=== PATIENT | female | born 1945 | race Caucasian/White ===

== ENCOUNTER 2017-02-03 17:40 | Emergency (ER) | payer MEDICARE | END 2017-02-03 19:55 | disposition home or self-care (01) | LOC: D.ER 17:40 | DX: Z91.81 History of falling (principal) ==

== ENCOUNTER 2018-02-05 21:33 | Inpatient (IN) | payer MEDICARE, MEDICAID ==
[~2018-02-05] VITALS: Ht 157.5 cm; Wt 78.2 kg
--- NOTE | ~2018-02-05 | PN ---
PATIENT:ANTHONY MANSFIELD MEDICAL RECORD: [id number] LOCATION:JollyJETTRebecca AzevedoMadelaine ADMISSION DATE: 02/05/18 PROGRESS NOTE DATE OF SERVICE: 02/20/2018 SUBJECTIVE: The patient's case was discussed with staff. She has no new complaint. OBJECTIVE: The patient is in good behavioral control with limited insight about her condition. She does tolerate her medicines well. Eye contact is fair. Concentration is fair. ASSESSMENT: No change in diagnoses. PLAN: Current medicines have been reviewed. I am going to start the patient on a low dose of Klonopin for her underlying anxiety. She has very limited insight. Her behaviors are significantly better. TRANSINT:[id number] Voice Confirmation ID: [id number] DOCUMENT ID: [id number] MONTSERRAT WRAY MD at 1449 CC: [id number] DICTATION DATE: 02/20/18 1457 VOCATIONAL TRAINING DIRECTOR: 02/20/18 1509 ADM IN [place] [address] [place] [address]
--- NOTE | ~2018-02-05 | PN ---
PATIENT:ANTHONY MANSFIELD MEDICAL RECORD: [id number] LOCATION:ZAKIA Azevedo112 ADMISSION DATE: 02/05/18 PROGRESS NOTE DATE OF SERVICE: 02/28/2018 SUBJECTIVE: The patient's case was discussed with staff. She has no new complaint. OBJECTIVE: The patient is still having trouble with agitation during the night. Her Depakote level is therapeutic. Eye contact is fair. She denies any psychotic symptoms. ASSESSMENT: No change in diagnoses. PLAN: Current medicines have been reviewed and will be maintained. I anticipate the patient can be transitioned out of the hospital tomorrow. I recognize that she is going to have ongoing behavior problems. TRANSINT:[id number] Voice Confirmation ID: [id number] DOCUMENT ID: [id number] MONTSERRAT WRAY MD at 1340 CC: [id number] DICTATION DATE: 02/28/18 1431 CLEAN ROOM ASSEMBLER: 02/28/18 1535 ADM IN [id number] [place] [address]
--- NOTE | ~2018-02-05 | PN ---
PATIENT:ANTHONY MANSFIELD MEDICAL RECORD: [id number] LOCATION:ZAKIA Azevedo112 ADMISSION DATE: 02/05/18 PROGRESS NOTE DATE OF SERVICE: 02/18/2018 SUBJECTIVE: The patient's case was discussed with staff. She has no new complaint. OBJECTIVE: The patient continues to appear confused and is reporting the nausea. She has a therapeutic Depakote level of 76. She does have a slightly low sodium and is not showing any evidence of acute infection. ASSESSMENT: No change in diagnoses. PLAN: Current medicines and therapies have been reviewed and will be maintained. Her long-term prognosis is guarded. If the patient's nausea does not improve, I may discontinue the Depakote and see if that makes a difference. It does not seem to be tied in intensity to when the Depakote is given, but I am at a loss as to what is causing this longstanding nausea without vomiting. It is new and was not present on admission. TRANSINT:[id number] Voice Confirmation ID: [id number] DOCUMENT ID: [id number] MONTSERRAT WRAY MD at 1319 CC: [id number] DICTATION DATE: 02/18/18 1014 COMPUTER NETWORK SUPPORT SPECIALIST: 02/18/18 1143 ADM IN [place] [id number] [place] [address]
--- NOTE | ~2018-02-05 | PN ---
PATIENT:ANTHONY MANSFIELD MEDICAL RECORD: [id number] LOCATION:ZAKIA Azevedo112 ADMISSION DATE: 02/05/18 PROGRESS NOTE DATE OF SERVICE: 02/11/2018 SUBJECTIVE: The patient's case was discussed with staff. She has no new complaint. OBJECTIVE: The patient denies intent to harm herself or others. She does tolerate her medicines well. ASSESSMENT: No change in diagnoses. PLAN: The patient will be maintained on current medicines. Long-term prognosis is guarded. TRANSINT:[id number] Voice Confirmation ID: [id number] DOCUMENT ID: [id number] MONTSERRAT WRAY MD at 1408 CC: [id number] DICTATION DATE: 02/11/18 1215 SHIRT CREASER: 02/11/18 1226 ADM IN [place] [id number] [place] [id number]
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
--- NOTE | ~2018-02-05 | PN ---
PATIENT:ANTHONY MANSFIELD MEDICAL RECORD: [id number] LOCATION:ZAKIA Gaytan ADMISSION DATE: 02/05/18 PROGRESS NOTE DATE OF SERVICE: 02/14/2018 SUBJECTIVE: The patient's case was discussed with staff. She has no new complaint. OBJECTIVE: The patient is in good behavioral control with limited insight about her condition. She tolerates her medicines well. Earlier today, she was very agitated and received p.r.n. Haldol and Ativan. Actually, it was 2:30 this morning, not earlier in the day, but she is calmer now. Last night though, she was verbally aggressive with staff and displaying paranoid and psychotic symptoms. She has no recollection of this when asked. She is clearly impaired cognitively. I have reviewed her current medications and I am satisfied that the Geodon she is taking at a dose of 40 mg a day is going to help. It is just that it has only been a couple of days. It may be necessary to change it to something else, but I think she will respond to this if given enough time. The patient does have a Depakote level that is therapeutic from few days ago. I will check another level to see if it is creeping in one direction or another. ASSESSMENT: No change in diagnoses. PLAN: As described above, the patient will be maintained on current medicines and a Depakote level will be checked. TRANSINT:[id number] Voice Confirmation ID: [id number] DOCUMENT ID: [id number] MONTSERRAT WRAY MD at 1305 CC: [id number] DICTATION DATE: 02/14/18 1659 TERRAZZO POLISHER HELPER: 02/14/18 1711 ADM IN [facility] [address] [place] [id number]
--- NOTE | ~2018-02-05 | PN ---
PATIENT:ANTHONY MANSFIELD MEDICAL RECORD: [id number] LOCATION:ZAKIA Azevedo112 ADMISSION DATE: 02/05/18 PROGRESS NOTE DATE OF SERVICE: 02/26/2018 SUBJECTIVE: The patient's case was discussed with staff. She has no new complaint. OBJECTIVE: The patient denies intent to harm herself or others. She is clearly impaired cognitively. She had some emotional lability today that was new, but I am not sure how to address it. Certainly it is something that needs to be monitored, but given her current situation, I am not going to make pharmacologic changes today based upon this one event. ASSESSMENT: No change in diagnoses. PLAN: The patient will be maintained on current medicines. I am going to check a Depakote level. TRANSINT:[id number] Voice Confirmation ID: [id number] DOCUMENT ID: [id number] MONTSERRAT WRAY MD at 1416 CC: [id number] DICTATION DATE: 02/26/18 1556 POSTAL MAIL CARRIER: 02/26/18 1628 ADM IN [id number] [place] [address]
--- NOTE | ~2018-02-05 | PN ---
PATIENT:ANTHONY MANSFIELD MEDICAL RECORD: [id number] LOCATION:ZAKIA RodriguezJoshuaMadelaine ADMISSION DATE: 02/05/18 PROGRESS NOTE DATE OF SERVICE: 02/17/2018 SUBJECTIVE: The patient's case was discussed with staff. She has no new complaint. OBJECTIVE: The patient is in good behavioral control with limited insight about her condition. She still has the nausea. She is not agitated or aggressive at this point. ASSESSMENT: No change in diagnoses. PLAN: Baseline labs will be checked. I am going to start the patient on a low dose of Zyprexa at night to assist with the agitation she seems to be having in the evening. I think her long-term prognosis is guarded. TRANSINT:[id number] Voice Confirmation ID: [id number] DOCUMENT ID: [id number] MONTSERRAT WRAY MD at 1002 CC: [id number] DICTATION DATE: 02/17/18 1113 FUR BLOWER: 02/17/18 1145 ADM IN [place] [place] [address]
--- NOTE | ~2018-02-05 | PN ---
PATIENT:ANTHONY MANSFIELD MEDICAL RECORD: [id number] LOCATION:MichaelJoshuaTERESA Azevdeo112 ADMISSION DATE: 02/05/18 PROGRESS NOTE DATE OF SERVICE: 02/25/2018 SUBJECTIVE: The patient's case was discussed with staff. She has no new complaint. OBJECTIVE: The patient denies intent to harm herself or others. She generally tolerates her medicines well. Eye contact is fair. ASSESSMENT: No change in diagnoses. PLAN: Supportive and educational interventions were made. The patient was agitated, required p.r.n. Haldol and Ativan last night. I am going to increase her scheduled dose of Klonopin to try and calm these agitated behaviors she has at night, which I think are just related to her being confused and frightened. TRANSINT:[id number] Voice Confirmation ID: [id number] DOCUMENT ID: [id number] MONTSERRAT WRAY MD at 1351 CC: [id number] DICTATION DATE: 02/25/18 1243 CAR WASHER: 02/25/18 195 ADM IN [place] [address] [place] [address]
--- NOTE | ~2018-02-05 | PN ---
PATIENT:ANTHONY MANSFIELD MEDICAL RECORD: [id number] LOCATION:ZAKIA Gaytan ADMISSION DATE: 02/05/18 PROGRESS NOTE DATE OF SERVICE: 03/04/2018 SUBJECTIVE: The patient's case was discussed with staff. She has no new complaint. OBJECTIVE: The patient is more awake today. She is oriented partially. ASSESSMENT: No change in diagnoses. PLAN: The patient will be started on a scheduled dose of Geodon at 20 mg twice daily. Her long-term prognosis is guarded. TRANSINT:[id number] Voice Confirmation ID: [id number] DOCUMENT ID: [id number] MONTSERRAT WRAY MD at 1426 CC: [id number] DICTATION DATE: 03/04/18 1217 INTENSIVE CARE SPECIALIST: 03/04/18 1225 ADM IN [id number] [place] [address]
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
--- NOTE | ~2018-02-05 | PN ---
PATIENT:ANTHONY MANSFIELD MEDICAL RECORD: [id number] LOCATION:ZAKIA Azevedo112 ADMISSION DATE: 02/05/18 PROGRESS NOTE DATE OF SERVICE: 03/02/2018 SUBJECTIVE: The patient's case was discussed with staff. She has no new complaint. OBJECTIVE: The patient is in good behavioral control with limited insight about her condition. She does tolerate her medicines well. ASSESSMENT: No change in diagnoses. PLAN: Current medicines and therapies have been reviewed and will be maintained. She is likely to become agitated through the weekend since I have held the medicines that were making her so sedated. If she does not, then I would look at transitioning her out of the hospital this weekend. TRANSINT:[id number] Voice Confirmation ID: [id number] DOCUMENT ID: [id number] MONTSERRAT WRAY MD at 1151 CC: [id number] DICTATION DATE: 03/02/18 1423 MACHINE STEAK TENDERIZER: 03/02/18 1430 ADM IN [place] [id number] [place] [id number]
--- NOTE | ~2018-02-05 | PN ---
PATIENT:ANTHONY MANSFIELD MEDICAL RECORD: [id number] LOCATION:TIFFANYRebecca MichaelJoshua112 ADMISSION DATE: 02/05/18 PROGRESS NOTE DATE OF SERVICE: 02/07/2018 SUBJECTIVE: The patient's case was discussed with staff. She has no new complaint. OBJECTIVE: The patient is in good behavioral control with limited insight about her condition. She generally tolerates her medications well. She has not been openly aggressive, but she is threatening and clearly very hostile. ASSESSMENT: No change in diagnoses. PLAN: The patient says she does not want to hurt herself, but she does so in a way that is not very convincing. I am going to continue current medications. I do not think she is safe to return to the long-term today. TRANSINT:[id number] Voice Confirmation ID: [id number] DOCUMENT ID: [id number] MONTSERRAT WRAY MD at 1336 CC: [id number] DICTATION DATE: 02/07/18 1322 REMOTE CONTROL ASSEMBLER: 02/07/18 1330 ADM IN [id number] [place] [address]
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
--- NOTE | ~2018-02-05 | PN ---
PATIENT:ANTHONY MANSFIELD MEDICAL RECORD: [id number] LOCATION:ZAKIA Azevedo112 ADMISSION DATE: 02/05/18 PROGRESS NOTE DATE OF SERVICE: SUBJECTIVE: The patient's case was discussed with staff. She has no new complaint. OBJECTIVE: The patient is still somewhat sedated. The medications that might have been responsible for this have been discontinued. ASSESSMENT: No change in diagnoses. PLAN: I am going to keep the patient on her current medicines and we will check basic labs to see if there is anything that might be identified as a possible source for this sedation. She says she does not feel well, but her vital signs are good. She has no fever. TRANSINT:[id number] Voice Confirmation ID: [id number] DOCUMENT ID: [id number] MONTSERRAT WRAY MD at 1157 CC: [id number] DICTATION DATE: 03/03/18 1159 CNC APPLICATIONS ENGINEER: 03/03/18 1207 ADM IN [address] [id number] [place] [address]
--- NOTE | ~2018-02-05 | PN ---
PATIENT:ANTHONY MANSFIELD MEDICAL RECORD: [id number] LOCATION:ZAKIA AzevedoMadelaine ADMISSION DATE: 02/05/18 PROGRESS NOTE DATE OF SERVICE: 02/21/2018 SUBJECTIVE: The patient's case was discussed with staff. She has no new complaint. OBJECTIVE: The patient is in good behavioral control with limited insight about her condition. She does tolerate her medicines well. The patient did receive p.r.n. medications last night. She was actively yelling and wanting to get out of bed. The description in the notes indicate that she was psychotic. She does not have recollection of that today. ASSESSMENT: No change in diagnoses. PLAN: I am going to increase the patient's scheduled dose of Klonopin slightly. I think that some of her agitated behavior is related to anxiety when she is unable to process or understand things in her environment. Her long-term prognosis is guarded. TRANSINT:[id number] Voice Confirmation ID: [id number] DOCUMENT ID: [id number] MONTSERRAT WRAY MD at 1407 CC: [id number] DICTATION DATE: 02/21/18 1503 INDUSTRIAL PROPERTY APPRAISER: 02/21/18 1512 ADM IN [facility] [address] [place] [address]
--- NOTE | ~2018-02-05 | PN ---
PATIENT:ANTHONY MANSFIELD MEDICAL RECORD: [id number] LOCATION:JollyJETTRebecca AzevedoMadelaine ADMISSION DATE: 02/05/18 PROGRESS NOTE DATE OF SERVICE: 02/09/2018 SUBJECTIVE: The patient's case was discussed with staff. She has no new complaint. OBJECTIVE: The patient is in good behavioral control with limited insight about her condition. She does tolerate her medicines well. ASSESSMENT: No change in diagnoses. PLAN: The patient is going to be started on Aricept at a dose of 5 mg at bedtime. Aricept is being used to treat her underlying cognitive impairment. She will be monitored for clinical changes associated with its use. TRANSINT:[id number] Voice Confirmation ID: [id number] DOCUMENT ID: [id number] MONTSERRAT WRAY MD at 1213 CC: [id number] DICTATION DATE: 02/09/18 1503 SALES TRADER: 02/09/18 1513 ADM IN [place] [id number] [place] [id number]
--- NOTE | ~2018-02-05 | PN ---
PATIENT:ANTHONY MANSFIELD MEDICAL RECORD: [id number] LOCATION:[facility] ADMISSION DATE: 02/05/18 PROGRESS NOTE DATE OF SERVICE: 02/19/2018 SUBJECTIVE: The patient's case was discussed with staff. She has no new complaint. OBJECTIVE: The patient denies intent to harm herself or others. She is severely impaired cognitively and has very limited insight about her condition. She has a Depakote level from 2 days ago that is nicely therapeutic and her lab 2 days ago, has some significant abnormalities, but none that would explain her current level of nausea and general lethargy. ASSESSMENT: No change in diagnoses. PLAN: The patient's current medicines will be maintained. The nausea is better. I had given consideration to stopping the Depakote, but weighing the benefit, I think she is getting from it versus her improvement in her nausea, I think that I am going to just continue it as it is. TRANSINT:[id number] Voice Confirmation ID: [id number] DOCUMENT ID: [id number] MONTSERRAT WRAY MD at 1440 CC: [id number] DICTATION DATE: 02/19/18 1356 DIRECTOR SPECIAL EDUCATION: 02/19/18 1410 ADM IN [place] [id number] [place] [address]
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
--- NOTE | ~2018-02-05 | PN ---
PATIENT:ANTHONY MANSFIELD MEDICAL RECORD: [id number] LOCATION:[facility] AzevedoMadelaine ADMISSION DATE: 02/05/18 PROGRESS NOTE DATE OF SERVICE: 02/08/2018 SUBJECTIVE: The patient's case was discussed with staff. She has no new complaint. OBJECTIVE: The patient is angry and disorganized. She has been irritable with the staff. She required p.r.n. medications yesterday on 2 different occasions. ASSESSMENT: No change in diagnoses. PLAN: The patient will have her Depakote increased to 500 mg twice daily. The Depakote is being used as a mood stabilizer. Her long-term prognosis is guarded. TRANSINT:[id number] Voice Confirmation ID: [id number] DOCUMENT ID: [id number] MONTSERRAT WRAY MD at 1435 CC: [id number] DICTATION DATE: 02/08/18 1357 SPECIAL EDUCATION SUPERVISOR: 02/08/18 1413 ADM IN [place] [id number] [place] [address]
--- NOTE | ~2018-02-05 | PN ---
PATIENT:ANTHONY MANSFIELD MEDICAL RECORD: [id number] LOCATION:TIFFANYRe[facility] Azevedo112 ADMISSION DATE: 02/05/18 PROGRESS NOTE DATE OF SERVICE: 03/01/2018 SUBJECTIVE: The patient's case was discussed with staff. She has no new complaint. OBJECTIVE: The patient is very disorganized and sedated. She is difficult to arouse. ASSESSMENT: No change in diagnoses. PLAN: The patient will be taken off of trazodone and Klonopin since they are likely the medicines that are causing the sedation. I will reassess her situation tomorrow. In the interim, I am going to go ahead and hold off on her discharge. TRANSINT:[id number] Voice Confirmation ID: [id number] DOCUMENT ID: [id number] MONTSERRAT WRAY MD at 1406 CC: [id number] DICTATION DATE: 03/01/18 1401 SNOWBOARD INSTRUCTOR: 03/01/18 1410 ADM IN [place] [address] [place] [address]
--- NOTE | ~2018-02-05 | PN ---
PATIENT:ANTHONY MANSFIELD MEDICAL RECORD: [id number] LOCATION:[facility] Azevedo112 ADMISSION DATE: 02/05/18 PROGRESS NOTE DATE OF SERVICE: 02/16/2018 SUBJECTIVE: The patient's case was discussed with staff. She has no new complaint. OBJECTIVE: The patient is in good behavioral control with poor insight about her condition. She tolerates her medicines well. ASSESSMENT: No change in diagnoses. PLAN: Supportive and educational interventions were made. Long-term prognosis is guarded. TRANSINT:[id number] Voice Confirmation ID: [id number] DOCUMENT ID: [id number] MONTSERRAT WRAY MD at 1053 CC: [id number] DICTATION DATE: 02/16/18 1333 SINGING TEACHER: 02/16/18 1338 ADM IN [place] [id number] [place] [id number]
--- NOTE | ~2018-02-05 | PN ---
PATIENT:ANTHONY MANSFIELD MEDICAL RECORD: [id number] LOCATION:[facility] Azevedo112 ADMISSION DATE: 02/05/18 PROGRESS NOTE DATE OF SERVICE: 02/13/2018 SUBJECTIVE: The patient's case was discussed with staff. She has no new complaint. OBJECTIVE: The patient is in good behavioral control with very limited insight about her condition. She has not been making any suicidal threats or showing any aggressive behavior today. ASSESSMENT: No change in diagnoses. PLAN: Supportive and educational interventions were made. TRANSINT:[id number] Voice Confirmation ID: [id number] DOCUMENT ID: [id number] MONTSERRAT RWAY MD at 1628 CC: [id number] DICTATION DATE: 02/13/18 1500 NURSING CLERK: 02/13/18 1516 ADM IN [place] [id number] [place] [address]
--- NOTE | ~2018-02-05 | PN ---
PATIENT:ANTHONY MANSFIELD MEDICAL RECORD: [id number] LOCATION:TIFFANYRebecca MichaelJoshuaMadelaine ADMISSION DATE: 02/05/18 PROGRESS NOTE DATE OF SERVICE: 03/05/2018 SUBJECTIVE: The patient's case was discussed with staff. She has no new complaint. OBJECTIVE: The patient is more awake and cooperative. She has not been aggressive or had any thoughts of self-harm. ASSESSMENT: No change in diagnoses. PLAN: Supportive and educational interventions were made. Long-term prognosis is guarded. TRANSINT:[id number] Voice Confirmation ID: [id number] DOCUMENT ID: [id number] MONTSERRAT WRAY MD at 1354 CC: [id number] DICTATION DATE: 03/05/18 1442 CPC: 03/05/18 1453 DIS IN 03/05/18 [facility] [address] [place] [address]
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
--- NOTE | ~2018-02-05 | PN ---
PATIENT:ANTHONY MANSFIELD MEDICAL RECORD: [id number] LOCATION:[facility]AKIA AzevedoMadelaine ADMISSION DATE: 02/05/18 PROGRESS NOTE DATE OF SERVICE: 02/23/2018 SUBJECTIVE: The patient's case was discussed with staff. She has no new complaint. OBJECTIVE: The patient is in good behavioral control with limited insight about her condition. She does tolerate her medicines well. Eye contact is fair. ASSESSMENT: No change in diagnoses. PLAN: Supportive and educational interventions were made. Long-term prognosis is guarded. TRANSINT:[id number] Voice Confirmation ID: [id number] DOCUMENT ID: [id number] MONTSERRAT WRAY MD at 1234 CC: [id number] DICTATION DATE: 02/23/18 1419 SOCK LINING STITCHER: 02/23/18 1425 ADM IN [place] [id number] [place] [address]
--- NOTE | ~2018-02-05 | PN ---
PATIENT:ANTHONY MANSFIELD MEDICAL RECORD: [id number] LOCATION:JollyJETTRebecca AzevedoMadelaine ADMISSION DATE: 02/05/18 PROGRESS NOTE DATE OF SERVICE: 02/27/2018 SUBJECTIVE: The patient's case was discussed with staff. She has no new complaint. OBJECTIVE: The patient is very limited in her insight. She does appear a little calmer today. She denies that she would want to hurt herself or others. She has 2 or 3 very nicely therapeutic Depakote level, so I am comfortable with the amount that she is taking. ASSESSMENT: No change in diagnoses. PLAN: Current medicines and therapies have been reviewed and will be maintained. Her long-term prognosis is guarded. TRANSINT:[id number] Voice Confirmation ID: [id number] DOCUMENT ID: [id number] MONTSERRAT WRAY MD at 1419 CC: [id number] DICTATION DATE: 02/27/18 1435 ETHNIC STUDIES PROFESSOR: 02/27/18 1544 ADM IN [place] [id number] [place] [address]
--- NOTE | ~2018-02-05 | PN ---
PATIENT:ANTHONY MANSFIELD MEDICAL RECORD: [id number] LOCATION:[facility]AK[facility] Azevedo112 ADMISSION DATE: 02/05/18 PROGRESS NOTE DATE OF SERVICE: 02/15/2018 SUBJECTIVE: The patient's case was discussed with staff. She has no new complaint. OBJECTIVE: The patient is in good behavioral control, but has limited insight about her condition. ASSESSMENT: No change in diagnoses. PLAN: Current medicines have been reviewed. I am going to hold her Geodon secondary to some sedation. TRANSINT:[id number] Voice Confirmation ID: [id number] DOCUMENT ID: [id number] MONTSERRAT WRAY MD at 1324 CC: [id number] DICTATION DATE: 02/15/18 1359 BREWING TECHNICIAN: 02/15/18 1403 ADM IN [place] [id number]
[2018-02-05 23:18] VITALS: BP 121/57
[2018-02-06] MEDS ORDERED: VOLTAREN100 GM TOPICAL (03:20)
[2018-02-06] MEDS ORDERED: COLACE100 MG PO (03:21)
[2018-02-06] MEDS ORDERED: CRESTOR10 MG PO (03:22)
[2018-02-06] MEDS ORDERED: DEPAKOTE250 MG PO (03:22)
[2018-02-06] MEDS ORDERED: ELIQUIS5 MG PO (03:23)
[2018-02-06] MEDS ORDERED: ZESTRIL10 MG PO (03:23)
[2018-02-06] MEDS ORDERED: VIC-FORTE CAPSUL1 MG PO (03:24)
[2018-02-06] MEDS ORDERED: PAXIL20 MG PO (03:25)
[2018-02-06] MEDS ORDERED: NITROSTAT0.3 MG SL (03:25)
[2018-02-06] MEDS ORDERED: SYNTHROID100 MCG PO (03:26)
[2018-02-06] MEDS ORDERED: SEROQUEL50 MG PO (03:26)
[2018-02-06] MEDS ORDERED: ULTRAM50 MG PO (03:27)
[2018-02-06 06:46] LABS: BASOPHILS 0.7 % (0-2); EOSINOPHILS 3.8 % (0-7); HEMATOCRIT 37.5 % (36.0-48.0); HEMOGLOBIN 12.3 g/dL (12-16); IMMATURE GRANULOCYTES 0.2 % (0-5); LYMPHOCYTES 33.2 % (15-50); MCH 30.9 pg (26.0-34.0); MCHC 32.8 g/dL (31.0-37.0); MCV 94.2 fL (80.0-100.0); MEAN PLATELET VOLUME 10.3 fL (7.4-10.4); MONOCYTES 11.4 % (2-11); NEUTROPHILS 50.7 % (40-80); PLATELET COUNT 220 10x3/uL (130-400); RBC 3.98 10x6/uL (4.00-5.40); RDW 12.9 % (11.5-14.5); WBC 4.5 10x3/uL (4.8-10.8)
[2018-02-06 07:18] LABS: BILIRUBIN - TOTAL 0.25 mg/dL (0.2-1.3); CALCIUM 8.2 mg/dL (8.5-10.1); CARBON DIOXIDE 28.8 mmol/L (21.0-32.0); CHOL - HDL RATIO 3.3 ratio (2.3-4.1); CREATININE - SERUM 0.8 mg/dL (0.6-1.3); LDL-HDL RATIO 2.1 ratio (1.5-3.5); POTASSIUM - SERUM 4.8 mmol/L (3.5-5.1); PROTEIN - SERUM 6.8 g/dL (6.4-8.2); THYROID STIMULATING HORMONE 1.94 uIU/mL (0.36-3.74); VALPROIC ACID (DEPAKOTE) 36.3 ug/mL (50.0-100.0)
[2018-02-06 08:00] VITALS: BP 146/88
[2018-02-06 19:58] VITALS: BP 116/62
[2018-02-07 08:20] LABS: FOLATE (FOLIC ACID) - SERUM 12.6 ng/mL (>3.0); RAPID PLASMA REAGIN Non Reactive (Non Reactive)
[2018-02-07 08:35] VITALS: BP 120/62
[2018-02-07 20:00] VITALS: BP 135/69
[2018-02-08 11:25] VITALS: BP 138/78
[2018-02-08 15:37] VITALS: Ht 157.5 cm; Wt 78.2 kg
[2018-02-08 19:37] VITALS: BP 164/68
[2018-02-09 08:04] LABS: APPEARANCE HAZY (CLEAR); BACTERIA MANY /hpf (NONE SEEN); BILIRUBIN NEGATIVE (NEGATIVE); COLOR YELLOW (YELLOW); EPITHELIAL CELLS 0-5 /hpf (0-5); GLUCOSE NEGATIVE (NEGATIVE); KETONE NEGATIVE (NEGATIVE); NITRITE POSITIVE (NEGATIVE); PROTEIN NEGATIVE (NEGATIVE); RED CELLS - URINE 0-5 /hpf (0-5); SPECIFIC GRAVITY 1.015 (1.005-1.020); UROBILINOGEN NORMAL (NORMAL); WHITE CELLS - URINE 25-50 /hpf (0-5)
[2018-02-09 09:58] VITALS: BP 184/82
[2018-02-10 00:31] VITALS: BP 130/60
[2018-02-10 08:25] VITALS: BP 140/77
[2018-02-10 20:00] VITALS: BP 125/56
[2018-02-11 09:58] VITALS: BP 160/72
[2018-02-11 20:00] VITALS: BP 191/86
[2018-02-12 08:00] VITALS: BP 149/83
[2018-02-12] MEDS ORDERED: Aricept PO (14:26)
[2018-02-12] MEDS ORDERED: Rocephin INJ IM (14:26)
[2018-02-12] MEDS ORDERED: GEODON20 MG PO (14:27)
[2018-02-12] MEDS ORDERED: Xylocaine-MPF 1% IM (14:27)
[2018-02-12] MEDS ORDERED: DEPAKOTE500 MG PO (14:27)
[2018-02-12 19:47] VITALS: BP 182/92
[2018-02-13 08:00] VITALS: BP 130/79
[2018-02-13 19:37] VITALS: BP 188/91
[2018-02-14 07:37] VITALS: BP 161/79
[2018-02-14 09:16] VITALS: BP 161/79
[2018-02-14 20:25] VITALS: BP 121/39
[2018-02-15 09:14] VITALS: BP 145/74
[2018-02-15 19:41] VITALS: BP 162/76
[2018-02-16 08:58] VITALS: BP 149/79
[2018-02-16 20:00] VITALS: BP 100/56; BP 142/60
[2018-02-17 08:00] VITALS: BP 158/82
[2018-02-17 13:37] LABS: BASOPHILS 0.2 % (0-2); EOSINOPHILS 0.3 % (0-7); HEMATOCRIT 40.3 % (36.0-48.0); HEMOGLOBIN 13.7 g/dL (12-16); IMMATURE GRANULOCYTES 0.3 % (0-5); LYMPHOCYTES 14.3 % (15-50); MCH 31.4 pg (26.0-34.0); MCV 92.2 fL (80.0-100.0); MEAN PLATELET VOLUME 10.8 fL (7.4-10.4); MONOCYTES 9.6 % (2-11); NEUTROPHILS 75.3 % (40-80); PLATELET COUNT 237 10x3/uL (130-400); RBC 4.37 10x6/uL (4.00-5.40)
[2018-02-17 13:51] LABS: ANION GAP 14.8 mmol/L (8-16); CALCIUM 8.9 mg/dL (8.5-10.1); CARBON DIOXIDE 25.7 mmol/L (21.0-32.0); CREATININE - SERUM 0.8 mg/dL (0.6-1.3); POTASSIUM - SERUM 4.5 mmol/L (3.5-5.1)
[2018-02-17 19:22] VITALS: BP 161/68
[2018-02-18 08:00] VITALS: BP 119/57
[2018-02-18 19:25] VITALS: BP 117/57
[2018-02-19 08:43] LABS: APPEARANCE CLEAR (CLEAR); BILIRUBIN NEGATIVE (NEGATIVE); COLOR YELLOW (YELLOW); GLUCOSE NEGATIVE (NEGATIVE); KETONE NEGATIVE (NEGATIVE); NITRITE NEGATIVE (NEGATIVE); PROTEIN NEGATIVE (NEGATIVE); RED CELLS - URINE 0-5 /hpf (0-5); SPECIFIC GRAVITY 1.015 (1.005-1.020); UROBILINOGEN NORMAL (NORMAL); WHITE CELLS - URINE NSEEN /hpf (0-5)
[2018-02-19 12:11] VITALS: BP 118/59
[2018-02-19 19:31] VITALS: BP 155/63
[2018-02-20 08:00] VITALS: BP 103/68
[2018-02-20 20:46] VITALS: BP 150/83
[2018-02-21 10:28] VITALS: BP 144/75
[2018-02-21 20:27] VITALS: BP 119/67
[2018-02-22 10:09] VITALS: BP 124/61
[2018-02-22 19:38] VITALS: BP 137/62
[2018-02-23 10:41] VITALS: BP 138/54
[2018-02-23 20:00] VITALS: BP 147/75
[2018-02-24 10:15] VITALS: BP 141/67
[2018-02-24 20:00] VITALS: BP 116/52
[2018-02-25 11:02] VITALS: BP 122/60
[2018-02-25 19:47] VITALS: BP 129/61
[2018-02-26 07:00] VITALS: BP 135/70
[2018-02-26 19:50] VITALS: BP 114/54
[2018-02-27 10:00] VITALS: BP 132/61
[2018-02-27 19:46] VITALS: BP 124/56
[2018-02-28 08:00] VITALS: BP 120/79
[2018-02-28 20:24] VITALS: BP 119/58
[2018-03-01 21:02] VITALS: BP 124/49
[2018-03-02 09:07] VITALS: BP 129/60
[2018-03-02 19:48] VITALS: BP 137/70
[2018-03-03 08:35] VITALS: BP 108/59
[2018-03-03 13:48] LABS: BASOPHILS 0.5 % (0-2); EOSINOPHILS 2.1 % (0-7); HEMATOCRIT 38.8 % (36.0-48.0); HEMOGLOBIN 13.4 g/dL (12-16); IMMATURE GRANULOCYTES 0.2 % (0-5); LYMPHOCYTES 19.8 % (15-50); MCH 31.3 pg (26.0-34.0); MCHC 34.5 g/dL (31.0-37.0); MCV 90.7 fL (80.0-100.0); MONOCYTES 10.9 % (2-11); NEUTROPHILS 66.5 % (40-80); PLATELET COUNT 199 10x3/uL (130-400); RBC 4.28 10x6/uL (4.00-5.40); RDW 12.7 % (11.5-14.5); WBC 5.6 10x3/uL (4.8-10.8)
[2018-03-03 14:22] LABS: ANION GAP 18.8 mmol/L (8-16); CALCIUM 9.2 mg/dL (8.5-10.1); CARBON DIOXIDE 20.4 mmol/L (21.0-32.0); CREATININE - SERUM 0.9 mg/dL (0.6-1.3); POTASSIUM - SERUM 4.2 mmol/L (3.5-5.1)
[2018-03-03 19:39] VITALS: BP 162/72
[2018-03-04 08:00] VITALS: BP 125/71
[2018-03-04 19:59] VITALS: BP 139/64
[2018-03-05 09:57] VITALS: BP 125/66
== END 2018-03-05 15:45 | DRG 57 ==
LOC: D.PSYCH 21:33
PROVIDERS: Psychiatry & Neurology Psychiatry
DX: I69.318 Other symptoms and signs involving cognitive functions following cerebral infarction (principal); F01.51 Vascular dementia, unspecified severity, with behavioral disturbance; R45.851 Suicidal ideations; N39.0 Urinary tract infection, site not specified; A04.72 Enterocolitis due to Clostridium difficile, not specified as recurrent; F32.9 Major depressive disorder, single episode, unspecified; K59.00 Constipation, unspecified; E03.9 Hypothyroidism, unspecified; I48.2 Chronic atrial fibrillation; I10 Essential (primary) hypertension; B37.9 Candidiasis, unspecified